=== PATIENT | male | born 1995 | race Caucasian/White ===

== ENCOUNTER 2018-07-13 14:05 | Inpatient (IN) | payer OTHER ==
--- NOTE | 2018-07-13 15:51 | EDPHY ---
General - History Smoking Status: Light smoker Time Seen by Provider: 07/13/18 14:22 Narrative: CLINICAL IMPRESSION: Severe depression, feelings of hopelessness ASSESSMENT/PLAN: 22-year-old male presents to the emergency department with his parents, from his psychologist office, with concern about severe depression, increased feelings of apathy, hopelessness, and apparently making comments to his psychologist today that he did not want to live. Patient stopped taking depression medications 5-6 days ago because he reported they were not doing anything. He has been on numerous depression medications, failed an inpatient program in March, abuses marijuana heavily during the day, has very little support system, and recently had to quit a job today. Patient is highly intelligent, and according to parents, "knows what to say" and can be manipulative. Mother especially is very tearful and worried about her child. She is adamant that ED and TLC team speak to patient's psychiatrist, contact number provided in HPI. Patient was placed on an MIH by myself given concern for flight risk. He apparently fled both his psychologist office today and made threats to flee from his parents before coming here. He denies suicidality and homicidality to me. I have discussed with low is from TLC who will evaluate the patient with only a breath and urine tox screen. Patient was however made aware that he may require lab work. I did inform him that he is on an MIH and that he cannot leave until he is evaluated or hold is vacated. Evaluation and treatment plan pending at time of sign-out to Dr. Garces and Dr. Clayton at 5:00 p.m.. DIFFERENTIAL DX: Differential includes but not limited to, acute/chronic psychosis, severe depression, suicidal or homicidal ideations, grave disability, failure to thrive , medication noncompliance, medication side effect, alcohol intoxication and illicit drug use, metabolic disturbance, electrolyte imbalance ED PROCEDURES: See lab and/or imaging results below ED COURSE: Long discussion with patient's parents and the patient. He was placed on an MIH as he is felt to be a flight risk. Patient is upset that he is here and reluctant to be evaluated but I have explained to him that he cannot leave until [facility] does a formal evaluation. It is the parents requested that a conversation happened between [facility] and his psychologist Shefali Sanchez who is contact number can be found in HPI. I have spoken with Tavia at [facility] who is willing to evaluate this patient after breath and U tox. Patient is aware that he may require lab work at some point. I have explained what an [facility] means to the patient who is somewhat upset about this. CHIEF COMPLAINT: Feeling hopeless HPI: 22-year-old male presents to the emergency department with his parents, from his psychologist office, for concerns of escalating apathy, severe depression, feelings of hopelessness, and statements of "not wanting to live". I spoke with patient's parents before I evaluated him. Mother reports that he was recently let go from a job at a [employer] that he was very integrated with. She reports he struggled with depression and addiction to marijuana for many years. He was in an inpatient facility in [place] in March of this year but signed himself out after 16 days of therapy. Over the last 3-4 weeks, his depression has been seemingly getting much worse. He has been seeing his psychologist, Shefali Sanchez who can be reached at [phone], twice weekly, he apparently saw her today and made statements that he "did not want to live, was getting frustrated with his parents and did not want to see them anymore, and seemed hopeless". The psychologist apparently got permission from the patient to speak to his mother. Mother was contacted and told that she should bring her son in for a psychiatric hold and evaluation. Apparently the patient then fled the psychologist's office and went home to his apartment to smoke marijuana. Parents arrived and convinced him to come to the emergency department with them. They confiscated his car because they were concerned he would try to "bolt". Patient apparently made statements on the way here about jumping out of the car. Patient tells me that he has been very depressed for a very long time. He has spoken to numerous psychiatric professionals but has never been admitted to the hospital. He has been on numerous psychiatric medications but states "none of them work". He stop taking a depression medication 5-6 days ago because it did not do anything for him. He admits to heavy marijuana use, was clean for a period of time but relapsed about a month ago and has been smoking heavily since that time. He was on medical leave from his job at a [employer], and had to tell them today that he was not coming back. He reports he thinks very highly of himself and his career aspirations at this job and took this decision very hard. He lives alone and states he spends most of the time alone smoking marijuana. He does not have a support network of friends or significant other as he has written them off. He denies any other illicit drugs and alcohol. He has never been admitted for suicidal ideations or psychiatric illness. He admits to feeling suicidal a couple weeks ago but without a plan. He did feel suicidal with a plan during his inpatient admission in March. He reports no access to guns. He tells me that he is feeling hopeless, he does not feel that his depression is getting better, he is not endorsing suicidality or homicidality currently, and states " I just want to get out of here, go home and smoke marijuana". His parents have voiced to me that the patient is very intelligent, they would not be surprised if he looked online about "what to say in the hospital so he would not have to be admitted" and states that at times he can be very manipulative. PAST MEDICAL HISTORY: Depression See nurse/triage notes for additional history if applicable Pertinent Past Surgical History: None reported Family History: Parents are in the emergency department Social History: Smokes marijuana daily, denies alcohol or other illicit drugs REVIEW OF SYSTEMS: All other systems negative Constitutional: No fever, no chills, appetite change. Eyes: No discharge, vision change ENT: No sore throat, congestion, ear pain. Cardiovascular: No chest pain, no palpitations. Respiratory: No cough, no shortness of breath. Gastrointestinal: No abdominal pain, no vomiting, diarrhea. Genitourinary: No hematuria, dysuria, flank pain, pelvic pain Musculoskeletal: No back pain, joint swelling, joint pain, myalgias. Skin: No rashes, color change. Neurological: No headache, dizziness, weakness. PHYSICAL EXAM: General Appearance: Alert, oriented, appropriate, poor eye contact, flat affect cooperative, VSS, no hypoxia. HEENT: Oropharynx clear is no erythema or exudates, no tonsillar hypertrophy or asymmetry. Dentition without abnormality.] Eyes: PERRLA, no acute vision change, nystagmus, swelling, discharge, pain or photosensitivity. Conjunctiva pink, no pallor or injection Neck: Supple, nontender, no lymphadenopathy, no midline pain, FROM, no meningismus. Respiratory: There are no retractions, lungs are clear to auscultation. Cardiac: Regular rate and rhythm, no murmurs or gallops. Gastrointestinal: [Abdomen is soft, nontender Neurological: [ Alert and oriented x 3 Skin: Warm, dry, no rashes, no nodules on palpation. Musculoskeletal: Extremities are symmetrical, full range of motion, no tenderness, deformity, swelling, or erythema. Psychiatric: Patient is oriented X 3, there is no agitation. Flat affect, poor eye contact, upset about being here, denies suicidality and homicidal thoughts, admits to feeling severely depressed and hopeless MEDICAL DECISION MAKING: Patient was seen independently. Secondary supervising physician at time of evaluation was Dr. Matilde Crockett . Diagnosis: Severe depression, hopelessness. New, requires workup Summary: See Assessment and Plan for summary of ED visit Clinical lab tests: ordered / reviewed. Decision to obtain medical records or history from someone other than the patient: Patient's parents Review / Summarize previous medical records: None available Discussed patient with another provider: Dr. Matilde Crockett, [facility] provider Patient Progress: Stable at time of sign-out. (Amor Suarez) Discussion: The patient was evaluated and managed by the Physician Technical Services Coordinator. I discussed the patient's presentation and course with the midlevel provider with them and agree with the evaluation. My co-signature indicates that I have reviewed this chart and I agree with the findings and plan of care as documented. I am the secondary supervising physician. I assumed care of this patient from RUBY Suarez at 5:00 p.m.. Patient was seen and evaluated by the Elvira from [facility]. Patient will be placed on a 72 hr mental health hold by [facility] and will be admitted to inpatient psychiatric care. At 9:00 p.m., the patient was agitated. He had previously received Ativan and was given Zyprexa 10 mg which he has had in the past. Care assumed by Dr Lubin at 10pm. (Yuko Garces) 10:52 p.m.- I have signed the M1 hold for the patient. He has been accepted at [address] [place] [address] Bradley[address] (Catherine Lubin) - Objective Vital Signs: Initial Vital Signs Temperature (C) 36.7 C 07/13/18 14:08 Heart Rate 74 07/13/18 14:08 Respiratory Rate 16 07/13/18 14:08 Blood Pressure 139/73 H 07/13/18 14:08 O2 Sat (%) 98 07/13/18 14:08 O2 Delivery Mode Room Air Allergies/Adverse Reactions: No Known Allergies Allergy (Unverified 07/13/18 14:15) Laboratory Results: 07/13/18 16:50 Urine Opiates Screen NEGATIVE (NEGATIVE) Urine Barbiturates NEGATIVE (NEGATIVE) Ur Phencyclidine Scrn NEGATIVE (NEGATIVE) Ur Amphetamine Screen NEGATIVE (NEGATIVE) U Benzodiazepines Scrn NEGATIVE (NEGATIVE) Urine Cocaine Screen NEGATIVE (NEGATIVE) U Marijuana (THC) Screen NON-NEGATIVE H (NEGATIVE) Medications Given: Discontinued Medications Lorazepam (Ativan) 1 mg PO EDNOW ONE Stop: 07/13/18 16:47 Last Admin: 07/13/18 16:52 Dose: 1 mg Olanzapine (Zyprexa Zydis) 10 mg PO EDNOW ONE Stop: 07/13/18 21:09 Last Admin: 07/13/18 21:10 Dose: 10 mg Departure - Departure Referrals: Aleisha Foley MD [Primary Care Provider] - As per Instructions
[2018-07-13] MEDS ORDERED: LORazepam 1 MG TAB PO ONE ×2 (16:46→22:57)
[2018-07-13] MEDS ORDERED: OLANZapine DISINTEGR 10 MG TAB ONE (21:07)
[2018-07-13] MEDS ORDERED: OLANZapine DISINTEGR 10 MG TAB PO ONE (21:08)
--- NOTE | 2018-07-14 | ASMTTLCEVL ---
TLC Evaluation - Basic Information Evaluation Start Date and 07/13/2018 07:00 PM Time Hospital Status Answers: M1 Hold 72-hr M1 Hold Start Date 07/13/2018 10:24 AM and Time Patient statement Notes: "They won't be able to tell. I'll get out of this. This four hours has been hellish. It has made me consider suicide more. I resent my parents for putting me through this. I have a pit of anxiety and stress in my stomach. I'm afraid that I will never get better. I don't want to be told I can't leave. I'm getting worse by the minute. I have nothing to live for. I don't care anymore what anyone thinks. I don't care what my parents think. I'm a broken person." Narrative Notes: The patient is a 22 y/o male, single, unemployed, with a hx of ADHD and depression. He is living alone in an empty apartment in [place], [place]. The patient arrived voluntarily with his parents following recommendation from his psychologist Shefali Sanchez, PhD. Laura recommended psychiatric evaluation to the patient and his family following a session in which the patient presented as "flat, hopeless, and indifferent to life." Laura reported that the patient stated, "I have nothing to live for. I don't care anymore what anyone thinks. I don't care what my parents think." Laura and the patient's parent report that the patient has been increasingly isolative, "not in contact with any other family, friends, etc." The patient ended his intimate relationship in February of 2018 due to his mh. He gave a notice to his employer today, following three months of medical leave. They denied an extension and he forfeited a $100,000 bonus. The patient completed two weeks in a 90 day inpatient drug rehab in [place]. He left the program because he felt he was "getting worse," his peers were "addicted to harder drugs" and he found it challenging to "connect," and wanted to focus on "mh" in addition. The patient reported that this period was his "lowest" including that he had two previous plans: "filling backpack with rocks" and "h[place]." The patient did not take steps towards the plans excluding "considering leaving bed to check the window of the bathroom" to learn whether not he could elope. The patient denies any current plan nor intent although he endorses increasing ideation. The patient is not a reliable historian. Laura and the patient's parents suspect that he may present safely in an effort to manipulate the evaluation. The patient was guarded and ambivalent about participation. He reportedlyremarked that [facility] staff would not be able to tell that he was a danger to himself and indicated that he would conceal information. Laura and the patient's parents believe the patient is in imminent risk of harming himself and should not be discharged from [facility] ED. The patient's mother stated, "I couldn't be more worried. He is despondent, isolative, dishonest, and hopeless. I've never seen him this low." Laura stated, "He has tried many medications without success, he has tx resistant depression, currently severe. There is a marked change in his presentation over the last several weeks. He was going to be evaluated for medications with an PLASTIC PRESS OPERATOR but he could not maintain sobriety. In the past when he is sober his depressive symptoms are unmanageable. He may be a candidate for ECT." The patient avoided eye contact. He stated, This four hours has been hellish. It has made me consider suicide more. I resent my parents for putting me through this. I have a pit of anxiety and stress in my stomach. I'm afraid that I will never get better. I don't want to be told I can't leave. I'm getting worse by the minute. The patient was placed on an 27-65 M1 and read their rights @ 10:24. Diagnosis History Notes: The patient has a previous diagnostic hx of ADHD and depression. Prior suicide attempts Notes: The patient denied any prior suicide attempts. Prior hospitalizations Notes: The patient denied any prior hospitalizations for mh. The patient participated in two weeks of a 90 day rehab for thc. Treatment Responses Notes: There is not sufficient information to determine the patients treatment response. History of violence Notes: The patient denied any homicidal ideation or previous hx of violence. Therapist: Shefali Sanchez, PhD Medications (name, dosage, route, freq uency) Notes: None Allergies/Reaction Notes: No known allergies Sleep Notes: The patient described his sleep as being "really fine; 8-9 hours per night." Appetite Notes: The patients appetite is decreased. Medical/Surgical history Notes: The patient denied any significant medical/surgical hx. Substance use history (frequency, intensity, his tory, duration) Notes: The patient stated he drinks etoh with friends primarily socially and the amount he consumes varies. He does not identify his use as problematic. The patient reported addiction to thc; he was been smoking flower since he was 15 y/o and last smoked thc today. He reported most recently using "2-5 spliffs, daily." The patient reported having tried other drugs; drugs unknown. Family composition Notes: The patient's parents live in [place], [place]. He has two sisters: one in [place] and another in [place]. The patient is the middle sibling. Need for family Answers: Yes participation in patient's care Family psychiatric/substance abuse history Notes: The patient reported that he has one uncle who uses nicotine and has depression as well as, an aunt with Schizophrenia. Developmental history Notes: he patient denied any developmental issues or learning disabilities. The patient endorsed a dx of ADHD. The patient denied any TBIs, concussions, or LOC.The patient denied any physical abuse, emotional abuse, or sexual abuse. The patient endorsed having achieved normal developmental milestones. Abuse concerns Answers: None Marital status/children Notes: The patient is single without children. Living situation Notes: The patient lives alone in an apartment in [place], [place]. Sexual history/orientation Notes: The patient is straight. Peer support/family strengths Notes: The patient endorsed having a supportive family/peer group although he indicated that he had difficulty accepting their help and a tendency to isolate himself. Education level/history Notes: The patient reported having attended high school and some college, bachelors degree in Marketing & Entrepreneurship. Work history Notes: The patient was employed at [employer], a [employer]. He took a 90 day medical leave in March to participate in a drug rehab. The patient notified the company that he is quitting after they denied an extension and offered him a $100,000 bonus in August. Notes: no known affiliation Legal Notes: The patient denied any legal issues. Rastafarian/Spiritual Notes: The patient reported none that would interfere with treatment. Leisure Notes: The patient reported enjoying "metal/wood working including knife making, fishing, music, video games, and tennis." Collateral Notes: The collateral data was obtained from current and previous [facility] ed records/staff, M1, Sheflai Sanchez, PhD, and family members: Srikanth and Libia Lyon. Patient's strengths Answers: Artistic/Creative/Musical (Please select at least TWO strengths): Athletic Intelligent Supportive Family TLC Evaluation - Mental Status Exam Appearance: Answers: Appropriate Well Groomed Neat Eye Contact: Answers: Avoiding Mood: Answers: Depressed Irritable Sad Affect: Answers: Agitated Calm Constricted Guarded Indifferent Irritable Sad Behavior: Answers: Appropriate Cooperative Fearful Guarded Manipulative Resistive to Care Withdrawn Speech: Answers: Relevant Logical Clear Coherent Dramatic Thought Process: Answers: Organized Oriented Alert Goal Oriented Insight: Answers: Fair Judgement: Answers: Poor Manic Signs/Symptoms Answers: Irritability Depression Answers: Flat Affect Signs/Symptoms: Hopelessness Sad Mood Withdrawn Anxiety Signs/Symptoms Answers: Generalized Anxiety Hallucinations: Answers: None Current Stage of Change Answers: Contemplation Precontemplation Pt reported to have Answers: Yes suicidal/self-injuring ideation/behavior? Pt reported to be making Answers: No suicidal/self-injuring threats? Pt reported to have Answers: No aggression/assault ideation/behavior? Pt reported to be making Answers: No aggression/assault threats? Pt exhibits inability to Answers: No care for self/grave disability? Ideation/behavior is Answers: No chronic? Ideation has Answers: No delusional/hallucinatory content? History of Answers: No aggressive/assaultive ideation, behavior, or threats? History of serious Answers: No physical harm to self/others while in treatment setting? TLC Evaluation - Suicide/Homicide Risk Suicide Risk Factors: Answers: Agitation Alcohol/Heavy Drug Use Flat Affect Hopelessness Lack/Loss of Employment Major Depression Single Homicide/violence risk Answers: Heavy Drug Use factors: Current Suicidal Answers: Yes Ideation? Current Suicidal Ideation Answers: Yes in the Past 48 Hours? Current Suicidal Ideation Answers: Yes in the Past Month? Suicide Internal Answers: Absence of Psychosis Protective Factors: Frustration Tolerance Suicide External Answers: Positive Therapeutic Protective Factors: Relationships Social Support Ranking of patient's Answers: Imminent suicidal risk: Ranking of patient's Answers: Low homicidal risk: TLC Evaluation - Wrap-up BDI Total Score: 26 BDI Question #2 Score: 1 BDI Question #9 Score: 1 BSS Total Score: 0 AXIS I Diagnosis (include DSM-V and ICD-10 codes), must also be entered in [employer], which is the source of truth. Notes: Major Depressive Disorder, recurrent, severe 296.33 (F33.2) Cannabis Use Disorder, severe 304.30 (F12.20) R/O Attention Deficit/Hyperactivity Disorder Evaluation End Date and 07/13/2018 12:00 PM Time ([id number]): Date Signed: 07/13/2018 11:58 PM Electronically Signed By:Elvira Cao
--- NOTE | 2018-07-14 00:05 | ASMTTCLDSP ---
TLC Discharge Disposition Disposition: Answers: Admit Discharge Concerns/Recommendations: Notes: In consultation with [facility] ED physician, Catherine Lubin MD and [facility] on-call psychiatrist, Willow Bradley MD, both concurred that pt appears to meet 27-65 criteria requiring psychiatric hospitalization as the patient appears to be an imminent risk of harm to self due to a mental illness condition. The patient was read the Patient Rights and Responsibilities Statement (placed on chart). The patient was given the 3[facility] prohibited belongings list while in the ED. Was patient given the Answers: Yes Inpatient Behavioral Health Prohibited Belongings List while in the ED? For inpatient Brayan Bradley MD admission, the following psychiatrist agreed to accept patient for admission to Behavioral Health ([facility]): Type of Hold: Answers: M1/72-hour Hold Hold initiated by: Answers: ED Physician Date Signed: 07/14/2018 12:04 AM Electronically Signed By:Elvira Cao
[2018-07-14 00:06] LABS: PLATELET COUNT 224 10^3/uL (150-400)
--- NOTE | 2018-07-14 00:59 | PDCONSULT ---
Pot[employer]er Note: Hospitalist H&P CC: Depression HPI: 22 yo M w/ hx of depression brought to ED by parents due to worsening symptoms. The patient denies SI to me but is clearly severely depressed. He has a very flat affect, minimal appetite, and has lost all interest in activities he once found enjoyable such as tennis, fishing, and knife making. He stopped taking his psychiatric medications 6 weeks ago because he was frustrated with lack of effect. He states he has not seen his psychiatrist in 6 weeks. He denies hallucinations to me. Per ED note his parents brought him in due to concerns about suicidality. He was placed on an M1 hold pending additional behavioral health evaluation. PMHx: Depression PSHx: Denies PFHx: Denies Meds: - Vortioxetine - Zyprexa VS: Temp Pulse Resp BP Pulse Ox 36.6 C 82 16 124/77 H 96 07/13/18 23:25 07/13/18 23:25 07/13/18 23:25 07/13/18 23:25 07/13/18 23:25 PE: GEN: NAD, A&Ox3 HEENT: MMM, normal scalp CV: NL S1/2, no m/r/g RESP: CTAB, no w/r/r ABD: NTND, NL BS SKIN: Warm, no edema NEURO: CN II-XII intact, normal strength PSYCH: Flat affect, denies SI/HI/AVH Laboratory Results 07/14/18 00:00 07/14/18 00:00 07/14/18 07/14/18 07/13/18 00:00 00:00 16:50 WBC 9.20 10^3/uL 10^3/uL (3.80-9.50) RBC 4.87 10^6/uL 10^6/uL (4.40-6.38) Hgb 14.7 g/dL g/dL (13.7-17.5) Hct 44.6 % % (40.0-51.0) MCV 91.6 fL fL (81.5-99.8) MCH 30.2 pg pg (27.9-34.1) MCHC 33.0 g/dL g/dL (32.4-36.7) RDW 12.5 % % (11.5-15.2) Plt Count 224 10^3/uL 10^3/uL (150-400) MPV 9.6 fL fL (8.7-11.7) Neut % (Auto) 61.7 % % (39.3-74.2) Lymph % (Auto) 31.8 % % (15.0-45.0) [place] % (Auto) 5.8 % % (4.5-13.0) Eos % (Auto) 0.1 % L % (0.6-7.6) Baso % (Auto) 0.3 % % (0.3-1.7) Nucleat RBC Rel Count 0.0 % % (0.0-0.2) Absolute Neuts (auto) 5.67 10^3/uL 10^3/uL (1.70-6.50) Absolute Lymphs (auto) 2.93 10^3/uL 10^3/uL (1.00-3.00) Absolute Monos (auto) 0.53 10^3/uL 10^3/uL (0.30-0.80) Absolute Eos (auto) 0.01 10^3/uL L 10^3/uL (0.03-0.40) Absolute Basos (auto) 0.03 10^3/uL 10^3/uL (0.02-0.10) Absolute Nucleated RBC 0.00 10^3/uL 10^3/uL (0-0.01) Immature Gran % 0.3 % % (0.0-1.1) Immature Gran # 0.03 10^3/uL 10^3/uL (0.00-0.10) Sodium 139 mEq/L mEq/L (135-145) Potassium 4.4 mEq/L mEq/L (3.5-5.2) Chloride 103 mEq/L mEq/L (97-110) Carbon Dioxide 26 mEq/l mEq/l (22-31) Anion Gap 10 mEq/L mEq/L (6-14) BUN 12 mg/dL mg/dL (7-23) Creatinine 0.9 mg/dL mg/dL (0.7-1.3) Estimated GFR > 60 Glucose 94 mg/dL mg/dL (70-100) Calcium 9.6 mg/dL mg/dL (8.5-10.4) Urine Opiates Screen NEGATIVE (NEGATIVE) Urine Barbiturates NEGATIVE (NEGATIVE) Ur Phencyclidine Scrn NEGATIVE (NEGATIVE) Ur Amphetamine Screen NEGATIVE (NEGATIVE) U Benzodiazepines Scrn NEGATIVE (NEGATIVE) Urine Cocaine Screen NEGATIVE (NEGATIVE) U Marijuana (THC) Screen NON-NEGATIVE H (NEGATIVE) A/P: 22 yo M w/ depression presents with major depressive episode: 1. Major depression - With progressive symptoms after self discontinuing medications. He denies suicidality currently but has made concerning comments to family members. - M1 hold - Admit to behavioral health for further evaluation Diet - Regular Code - Full Ppx - Low risk
[2018-07-14] MEDS ORDERED: LORazepam 0.5 MG TAB PO PRN (01:38)
[2018-07-14] MEDS ORDERED: OLANZapine DISINTEGR 10 MG TAB PO PRN (01:38)
[2018-07-14] MEDS ORDERED: ACETAMINOPHEN 325 MG TAB PO PRN (01:38)
[2018-07-14] MEDS ORDERED: MAGNESIUM HYDROXIDE 30 ML UDCUP PO PRN (01:38)
[2018-07-14] MEDS ORDERED: NICOTINE POLACRILEX 2 MG GUM B PRN (01:38)
[2018-07-14] MEDS ORDERED: MAG HYDROX/AL HYDROX/SIMETH 30 ML UDCUP PO PRN (01:38)
--- NOTE | 2018-07-14 11:09 | PDMN ---
Medical Necessity Medical necessity: Pt meets inpt criteria per MD order and [facility] [id number], Major Depressive Disorder, Adult: Inpatient Care, 3 days. 22 y/o w/hx depression admitted w/major depressive disorder, recurrent, severe, and cannabis use disorder, severe, and R/O ADHD. Pt meets 27-65 criteria requiring psychiatric hospitalization as pt appears to be an imminent risk of harm to self due to a mental illness condition, on M1 hold.
--- NOTE | 2018-07-14 13:03 | ASMTBHMTP ---
Master Treatment Plan Master Treatment Plan Answers: Depressed Mood with for: Suicidal Ideation Date: 07/14/2018 Diagnosis on Admission: Major Depressive Disorder, recurrent, severe 296.33 (F33.2) Expected length of stay: 3-5 Reason for admission: Notes: The patient is a 22 y/o male, single, unemployed, with a hx of ADHD and depression. He is living alone in an empty apartment in [place], [place]. The patient arrived voluntarily with his parents following recommendation from his psychologist Shefali Sanchez, PhD. Laura recommended psychiatric evaluation to the patient and his family following a session in which the patient presented as "flat, hopeless, and indifferent to life." Laura reported that the patient stated, "I have nothing to live for. I don't care anymore what anyone thinks. I don't care what my parents think." Laura and the patient's parent report that the patient has been increasingly isolative, "not in contact with any other family, friends, etc." The patient ended his intimate relationship in February of 2018 due to his mh. He gave a notice to his employer today, following three months of medical leave. They denied an extension and he forfeited a $100,000 bonus. The patient completed two weeks in a 90 day inpatient drug rehab in [place]. He left the program because he felt he was "getting worse," his peers were "addicted to harder drugs" and he found it challenging to "connect," and wanted to focus on "mh" in addition. The patient reported that this period was his "lowest" including that he had two previous plans: "filling backpack with rocks" and "hanging from a tree in the [place]." The patient did not take steps towards the plans excluding "considering leaving bed to check the window of the bathroom" to learn whether not he could elope. The patient denies any current plan nor intent although he endorses increasing ideation. The patient is not a reliable historian. Laura and the patient's parents suspect that he may present safely in an effort to manipulate the evaluation. The patient was guarded and ambivalent about participation. Patient's stated presenting problems: Notes: "My therapist and my parents thought that I am suicidal and brought me to the ED. I ended up on this unit. I'm not suicidal and I don't want to be here". Patient's goals for treatment: Notes: "I'm feeling anger and resentment toward my parents and my therapist. My goal is to go to sleep and make it go faster" Patient's strengths: Notes: "I cannot think about it now". Identify supports outside of hospital: Notes: "Cannot answer questions right now". Discharge criteria: Notes: Suicidal ideation will resolve and ct. will have a plan to safely manage recurrent SI. Initial disposition plan/considerations: Notes: Ct. will partcipate in unit activities and work on a discharge plan. Master Treatment Plan Required Signatures Psychiatrist signature: Answers: Psychiatrist: RN on-shift signature: Answers: RN: Patient signature: Answers: Patient: Date Signed: 07/14/2018 01:01 PM Electronically Signed By:Iris Ni
--- NOTE | 2018-07-14 13:15 | ASMTCMCOM ---
CM Note CM Note Notes: Summary of several meetings: CC met with ct. to develop MTP. Ct. presented as irritable and reported that he doesn't think the admission is helping him. He would like to be discharged today. Ct. reported that he and his parents have been looking at residential programs to address his MH issues and that he thinks he might be ready to attend one. Ct. reported that he is not suicidal. He said that he has been using weed to help with his depressioN. He realizes it may not be best for him but it works in the short term. CC spoke on the phone with ct.'s therapist who reported that she is "highly concerned about his safety". She would like to see him starting the residential program right after discharge. She would like to have a family meeting with ct., his parents on the unit to discuss the d/c plan.SVETLANA met with FOC who reported that parents are looking at residential programs. Parents are open to a family meeting tomorRow. Family meeting was scheduled for tomorrow at 11:00AM. Date Signed: 07/14/2018 01:14 PM Electronically Signed By:Iris Ni
--- NOTE | 2018-07-14 15:56 | BAPA ---
[f rep st] ADMISSION PSYCHIATRIC ASSESSMENT DATE OF SERVICE: 07/14/2018 CHIEF COMPLAINT: "I am in an especially deep period right now. Life will always be a struggle, ther e is no hope." HISTORY OF PRESENT ILLNESS: The patient is a 22-year-old male with a previous history of A DHD diagnosed in early adolescence and then later a diagnosis of treatment for depression. He states that his initial diagnosis of ADHD was due to procrastination at his work and poor task initiation a nd completion. He was placed on numerous psychostimulants over time including Ritalin, Adderall, Vyv anse, Concerta, and possibly some other newer medications. He states that these were minimally helpf ul, though the more concerning issue over time was his worsening depression. He states that from his late adolescence to currently, he worked with 3 psychiatrists, Dr. Srikanth Gustafson, Dr. Alfredo huang, and most recently Dr. Finn. He was tried on Prozac, Zoloft, Lexapro, Effexor, Cymbalta, Zypr exa, Abilify, Trintellix, Latuda, and possibly others. He states that none of these were helpful. Kushal morrow also was not benefitted from a trial of Strattera. He has seen a psychologist, Dr. Clark, over thi s time and believes that that interaction was helpful but that his depression continued to worsen. M ost recently, he states that he was feeling more and more depressed at the end of 2018 and by March of 2018 felt like he could no longer work. He states that he was suffering from "a total lack of mo tivation." He also reports "poor executive functioning" with continued procrastination, poor task pe rsistence, initiation and completion, and symptoms of poor general energy and motivation, depressed m ood, low self-esteem, apathy, feelings of helplessness and hopelessness, and anhedonia. He recognize d that his increasing daily use of marijuana was a factor and disclosed this to his parents, who help ed him arrange some treatment. He then went to a program in [place] that was supposed to be a 90-day residential treatment, though he states he only stayed for 2 weeks. He states that it was "t oo stifling and too substance abuse focused." When he returned to [place], he states that he focused on activities that he values including yoga, meditation, working out at the gym, cooking healthy shiloh d, and reading, and states that he did well for about 3 weeks. After this, he reports a decline in h is mood and return of the hypofrontal and neurovegetative symptoms. He then began to smoke pot again after 50 days of sobriety and states that his mood decreased further. He states that when he uses m arijuana, "I can clear my mind." He states this effect does not last and that when it wears off he f eels, at times, even worse. He states that he has felt "out of control" of his marijuana use. Most recently, he has been staying at his apartment, where there is no furniture, lying on the floor, play ing games on his phone, and smoking 4-5 "spliffs," that he states are joints he rolls himself with ma rijuana and tobacco. He reports having no interest in interacting with others and having texted all his friends asking them not to contact him because he does not want them to. He has also estranged h imself from his girlfriend of a year and a half and states that he is "too apathetic to continue that relationship." He was previously also playing tennis with his father but has stopped doing this is well. He states currently he rarely leaves the house. He was planning to return to work after a 90- day short-term disability but called them and stated that he was not ready. They told him that he patel d to either return to work or resign his position. He then did resign his position 2 days ago and th is caused him increased anxiety and stress as well as feelings of shame and guilt. He went to talk t o his therapist about this yesterday and stated that he was essentially suicidal, not caring if he li maida or , and that he was "giving up." The therapist then contacted his parents and they took him to the emergency department for evaluation. He states that he waited for 6 hours total in the emerg ency department to be seen, evaluated, and a decision for admission to be made. He states that this was "very traumatic" and "made me worse." He states that since arriving on the unit, sleeping in his private room, that this has also been stressful for him. He states that he is refusing to eat becau se "I don't have any appetite in this place." He states that "all I need is to get out of here, go b ack to my apartment and smoke a spliff." He states also that he will not engage with the staff here at the hospital because he and his mother are working on a plan to go to a residential dual diagnosis program that is mental health intensive rather than substance abuse intensive, and he has looked at a particular program in [place]. I did speak with the patient's mother today as well and she stated modesta t they are, in fact, looking at different programs but have not decided on anything at this time. Danya morrow states that she is very concerned about him as he seems to be "pulling away" from her and her husba nd and that they are "very, very concerned about his inability to care for himself." She states that the overriding sense that she and her get is that "he has no hope for the future." PAST PSYCHIATRIC HISTORY: The patient has previously been treated by Patrice Maya and Alla hernandes as mentioned above. He most recently was taking a combination of Trintellix 20 mg and Zyprexa 5 mg but states "these were just like sugar pills" and stopped them 5 days ago. He notes no benefit at all, "neither good or bad," from any medicines he has taken in the past including antidepressants, atypicals, mood stabilizers and psychostimulants. He has had no previous suicide attempts and no pr evious psychiatric hospitalizations. He had the one stay at rehab that only lasted 2 weeks in [place] about 3 months ago. ALLERGIES: No known medical allergies. CURRENT MEDICATIONS: None. PAST MEDICAL HISTORY: Noncontributory. SOCIAL HISTORY: The patient was born and raised in [place]. He is the middle of 3 siblings. He sta ambrocio he has a good relationship with his parents, who "have never been anything but kind to me." He s tates, however, that the relationship has been "strained" because of "all my stress, I cannot communi karen with them and I don't want to." The patient's mother states she is very concerned that he has a lways communicated openly with them and that in the last several weeks he has closed himself off and has refused to communicate with them. The patient graduated from the [employer] with a d egree in marketing and entrepreneurship and has recently been working for a start-up. 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 He reports enjoy ing working for this larger company but that he was unable to function in the last 3 months, causing him to have to resign his job only 2 days ago. He reported to [facility] staff that he had to forego a $100 ,000 bonus. The patient states that he enjoys tennis, cammy, meditation, yoga, going to the gym, co oking and reading, but he has not been doing these activities. He has a girlfriend of 18 months that he states he is no longer close to and has not been socializing with his friends. He denies any oth er specific stresses at this time. SUBSTANCE ABUSE HISTORY: The patient states he has used marijuana since the age of 17. He states he initially used it on weekends, 1 or 2 times a week. When he was a freshman in college, this increas ed to 5 or more times per week as "everyone in the dorms was smoking it." In his jayson year, he mov ed off campus to a house with numerous roommates and states that he began "smoking all day, every day ." He states "I would smoke in the mornings before class and before work." He currently smokes 4-5 spliffs per day. He states that his girlfriend and parents only recently discovered that he was usin g to this extent as he had not disclosed this and was rather secretive about his use. The patient states he uses alcohol occasionally. The patient states he has tried "a lot of other drugs, but they never became a habit." FAMILY HISTORY: The patient states he has an uncle with depression and an aunt with schizophrenia. ADMITTING LABORATORY: CBC is normal. Serum chemistries are normal. Nonfasting glucose was normal a t 94. Hemoglobin A1c is normal at 5.5. Liver function is normal. Lipid profile is normal. Urine d rug screen is positive for marijuana. MENTAL STATUS EXAMINATION: Reveals a healthy-appearing male. He is casually and appropria tely dressed and interactive. He is somewhat guarded, sitting with his knees pulled up to his chest and squatting on the chair. He makes intermittent eye contact, though at times makes prolonged eye c ontact when he expresses his anger about being in the hospital. His affect is dysphoric, blunted, st able, irritable and hostile at times. His mood is described as "depressed" and "terrible." His thou ght process is linear and goal directed. His thought content reveals no evidence of psychosis. He i s alert and oriented to person, place, time and situation, and his sensorium is clear. His intellect appears to be average to above average as evidenced by his educational and occupational histories fu nd of knowledge, and vocabulary. He denies any active thoughts of suicide, though is very guarded ab out this and clearly indicates that he does not want to say anything that would cause him to stay in the hospital longer. This was the impression from [facility] as well. His insight and judgment appear to b e fair. IMPRESSION: Major depressive disorder, recurrent, severe, without psychosis; attention deficit hyper activity disorder, combined inattentive type by history; cannabis use disorder, severe; chronic illne ss; recurrent illness; problems related to occupation and finances; family conflicts. The patient is a pleasant 22-year-old male with a history of recurrent depression and sever e cannabis use disorder. He is aware of this and at one point states that he believes he needs help for this and at other points states that he believes that the cannabis is only secondary to an underl trina mental illness that has never been adequately treated, and if this were treated, he would not us e cannabis. He is currently cooperative in the course of the interview, though overall hostile that he does not want to be in the hospital. He has clearly stated that he wants to leave the hospital so he can go and continue to use marijuana. He does state that he wants to go to a residential treatme nt program and his parents are supportive of this, though no such program has been identified yet. I have indicated to him that he is on a 72-hour hold and that we will keep him in the hospital for tamika ugh time to complete our full evaluation and discharge planning. He is agreeable to a family meeting tomorrow and I have contacted his mother and his therapist, Dr. Clark, who are both willing to be pr esent. He is scheduled for 11 o'clock. At that time, we will formalize a plan for his treatment and ultimately his discharge plan. I discussed in detail with the patient potential medication options and he prefers to hold off on modesta t for now as he states that this is something that can be done when [facility]. I am in agreement with this for now, though if logistically things change, we may need to proceed . Estimated length of stay is 3-5 days. /[id number]/MODL
[2018-07-15 06:43] VITALS: BP 120/66
--- NOTE | 2018-07-15 14:43 | ASMTBHDC ---
Notes Note: Notes: Family meeting with ct., parents, Shefali Sanchez- therapist , Dr. Palencia and this curriculum writer. Purpose of the meeting was to discuss follow up treatment in the community. Therapist recommends residential program at [facility]. Parents are on board with this plan and explained their reasoning for supporting it. Ct. appeared to be agreeing to this plan up to the point in which parents and therapist discussed getting to the program straight from the hospital. At this point ct. became oppositional and said that he refuses to go. He ended up signing a BRADLEY for [facility] and information was faxed over. Date Signed: 07/15/2018 02:42 PM Electronically Signed By:Iris Ni
== END 2018-07-15 16:37 | disposition home or self-care (01) | DRG 885 ==
LOC: BBEH 07-14 01:05
PROVIDERS: ADMIT Psychiatry & Neurology Psychiatry; ATTEND Psychiatry & Neurology Psychiatry
DX: F33.2 Major depressive disorder, recurrent severe without psychotic features (principal); F90.9 Attention-deficit hyperactivity disorder, unspecified type; F17.210 Nicotine dependence, cigarettes, uncomplicated; F12.90 Cannabis use, unspecified, uncomplicated
CPT/HCPCS: 80305